=== PATIENT | female | born 1990 | race Asian ===

== ENCOUNTER 2018-11-20 08:11 | Outpatient (CLI) | payer BC ==
--- NOTE | 2018-11-20 15:46 | MRI ---
MRI BREAST W W/O CONT BILAT History: Abnormal breast ultrasound. Prior cyst removal. Comparison: Ultrasound March 2018 Findings: Multiplanar multisequence MRI of the breasts was performed prior to and after the intraveno us administration of contrast. The exam was reviewed on an independent 3-D workstation. The breast parenchyma is extremely dense. Mild background parenchymal enhancement. Likely corresponding to the mammographic abnormality is a small 6 to 7 mm triangular-shaped area of m ild T2 signal hyperintensity and T1 signal isointensity to background parenchymal tissue with type I and type II kinetics. No rapid wash-in and washout. No other enhancing mass in the parenchyma. No axillary adenopathy. No internal adenopathy. Visualized mediastinum is unremarkable. Visualized liver is unremarkable. Impression: BI-RADS Category 2: Benign findings. Focus of enhancement left breast 4:00 likely area of scar given the prior surgical history and absence of ultrasonographic change since December 2017 according to the March 2018 ultrasound exam.
== END 2018-11-20 08:12 | disposition home or self-care (01) ==
LOC: BICMRI 08:11
PROVIDERS: ATTEND Surgery
DX: N63.20 Unspecified lump in the left breast, unspecified quadrant (principal); L90.5 Scar conditions and fibrosis of skin
CPT/HCPCS: A9577; C8908